=== PATIENT | male | born 1945 | race African-American/Black ===

== ENCOUNTER 2021-12-29 22:16 | Inpatient (IN) | payer BC, MEDICARE ==
[2021-12-29] MEDS ORDERED: Morphine 4 MG/ML VIAL ONE (22:57)
[2021-12-29 23:28] LABS: #Eosinphils 0.1 thou/uL (0.0-0.7); #Lymphocytes 1.3 thou/uL (1.20-3.40); #Neutrophils 11.7 thou/uL (1.40-6.50); %Basophils 0.2 % (0.0-1.0); %Eosinophils 0.5 % (0.0-10.0); %Lymphocytes 9.5 % (21.0-51.0); %Neutrophils 82.8 % (42.0-75.0); Hemoglobin 10.6 g/dL (14.0-18.0); Mean Corpuscular Hemoglobin 23.4 pg (27.0-31.0); Mean Corpuscular Volume 71.1 fL (78.0-98.0); Mean Platelet Volume 9.2 fL (7.4-10.4); Platelet Count 257 thou/uL (130-400); RBC Distribution Width 17.4 % (11.5-14.5); Red Blood Cell (RBC) Count 4.52 mill/uL (4.70-6.10); White Blood Cell (WBC) Count 14.2 thou/uL (4.8-10.8)
[2021-12-29 23:50] LABS: ALT (SGPT) 20 U/L (8-55); AST (SGOT) 23 U/L (5-34); Albumin 3.7 g/dL (3.4-4.8); Alkaline Phosphatase 91 U/L (40-110); Anion Gap 18 mmol/L (10-20); BUN (Urea Nitrogen) 28 mg/dL (8.4-25.7); Bilirubin, Total 0.6 mg/dL (0.2-1.2); Calc. Creatinine Clearance 0 mL/min (70-130); Carbon Dioxide 22 mmol/L (23-31); Chloride 99 mmol/L (98-107); Estimated GFR 52; Globulin 4.1 g/dL (2.4-3.5); Glucose 77 mg/dL (83-110); Potassium 3.7 mmol/L (3.5-5.1); Protein, Total 7.8 g/dL (5.8-8.1); Sodium 135 mmol/L (136-145)
[2021-12-29 23:50] LABS: Anisocytosis SLIGHT = 6-15 cells (100X) (0-5/hpf); Burr Cells SLIGHT = 2-5 cells (100X) (0-1/hpf); MDiff Complete? YES; Microcytosis SLIGHT = 6-15 cells (100X) (0-5/hpf); Platelet Morphology Comment Appears Adequate; Target Cells SLIGHT = 2-5 cells (100X) (0-1/hpf)
[2021-12-30 00:25] LABS: Bacteria/HPF None Seen HPF (None Seen); Bilirubin Negative (Negative); Blood, Urine Trace (Negative); Clarity Clear (Clear); Glucose, Urine (Dipstick) Greater than 1000 mg/dL (Negative); Ketone, Urine Negative (Negative); Leukocyte Negative Leu/uL (Negative); Nitrite Negative (Negative); Protein, Urine (Dipstick) 10 mg/dL (Neg-Trace); RBC/HPF None Seen HPF (0-3); Specific Gravity, Urine 1.014 (1.002-1.036); Squamous Epithelial None Seen HPF (0-3); Urobilinogen Normal mg/dL (Less than 2); pH, Urine 5.5 (5.0-9.0)
[2021-12-30] MEDS ORDERED: Piperacillin/Tazobactam 3.375 GM VIAL ONE ×2 (00:55→14:49)
[2021-12-30 01:09] LABS: Lipase 32 U/L (8-78); Magnesium 2.2 mg/dL (1.6-2.6)
[2021-12-30] MEDS ORDERED: Clindamycin/D5W 600 mg/50 ml Premix Bag ONE (02:35)
[2021-12-30] MEDS ORDERED: Morphine 4 MG/ML VIAL ONE (05:36)
[2021-12-30] MEDS ORDERED: Sodium Chloride 0.9% 1,000 ML IV SCH (06:00)
[2021-12-30] MEDS ORDERED: Ondansetron PF 4 MG/2 ML Vial IVP PRN ×2 (06:00→08:36)
[2021-12-30] MEDS ORDERED: Ondansetron ODT 4 MG TAB SL PRN (06:00)
[2021-12-30] MEDS ORDERED: Acetaminophen 325 MG TAB PO PRN ×2 (06:00→08:36)
[2021-12-30] MEDS ORDERED: Piperacillin/Tazobactam 3.375 GM in Sodium Chloride 0.9% 100 ML IVPB SCH ×2 (06:00→10:00)
[2021-12-30] MEDS ORDERED: Morphine 2 MG/ML VIAL SLOW IVP PRN (08:06)
[2021-12-30 08:23] LABS: SARS-CoV-2 NAA Rapid Test Not Detected (NotDetected)
[2021-12-30] MEDS ORDERED: Dextrose 5% in Water 1,000 ML IV PRN (08:36)
[2021-12-30] MEDS ORDERED: Dextrose 50% Abboject 50 ML SYRINGE SLOW IVP PRN (08:36)
[2021-12-30] MEDS: Ketorolac Tromethamine 30 MG/ML VIAL IVP PRN ×2 (08:39→20:45)
[2021-12-30] MEDS ORDERED: Clindamycin/D5W 600 MG in Premix Bag 1 BAG IVPB SCH (09:00)
[2021-12-30] MEDS ORDERED: Iopamidol-370 76% 500 ML 1 ML ONE (09:46)
[2021-12-30] MEDS: Famotidine 20 MG TAB PO SCH (09:57)
[2021-12-30] MEDS: Enoxaparin Sodium 40 MG/0.4 ML SYRINGE SC SCH (09:57)
[2021-12-30] MEDS: Senokot S 8.6-50 MG TAB PO SCH ×2 (09:58→21:12)
[2021-12-30] MEDS ORDERED: Vancomycin 1 GM in Premix Bag 1 BAG IVPB SCH ×2 (11:00→16:00)
[2021-12-30] MEDS: Metoprolol Tartrate 25 MG TAB PO SCH ×2 (11:56→21:12)
[2021-12-30] MEDS ORDERED: Midazolam HCl 2 mg/2 ml Vial ONE (14:37)
[2021-12-30] MEDS ORDERED: Fentanyl 100 MCG/2 ML VIAL ONE ×3 (14:38→19:11)
[2021-12-30] MEDS ORDERED: Sodium Chloride 0.9% 100 ML ONE (14:49)
[2021-12-30] MEDS ORDERED: fentaNYL Citrate/PF 100 MCG/2 ML SYRINGE ONE (16:14)
[2021-12-30] MEDS ORDERED: Promethazine HCl 25 MG/ML VIAL IVPB PRN (16:17)
[2021-12-30] MEDS ORDERED: Ondansetron HCl/PF 4 MG/2 ML Vial IVP PRN (16:17)
[2021-12-30] MEDS ORDERED: Promethazine HCl 25 MG/ML VIAL IM PRN (16:17)
[2021-12-30] MEDS ORDERED: Bupivacaine 0.25% 10 ML VIAL ONE (16:22)
[2021-12-30] MEDS ORDERED: PROPOFOL 200 MG/20 ML VIAL ONE (16:23)
[2021-12-30] MEDS ORDERED: Rocuronium Bromide 10 MG/ML (10ML VIAL) ONE (16:23)
[2021-12-30] MEDS ORDERED: Lidocaine 1% PF 5 ML VIAL ONE (16:23)
[2021-12-30] MEDS ORDERED: Ondansetron PF 4 MG/2 ML Vial ONE ×2 (16:23→18:59)
[2021-12-30] MEDS ORDERED: Neostigmine Methylsulfate 3 MG/3 ML SYRINGE ONE (16:23)
[2021-12-30] MEDS ORDERED: Glycopyrrolate 0.2 MG/ML 5 ML SYRINGE ONE (16:23)
[2021-12-30] MEDS: Piperacillin/Tazobactam 3.375 GM in Sodium Chloride 0.9% 100 ML IVPB SCH ×2 (17:13→21:12)
[2021-12-30] MEDS: Sodium Chloride 0.9% 1,000 ML IV SCH ×2 (17:13→19:48)
[2021-12-30 18:24] VITALS: BMI 25.4
[2021-12-30] MEDS ORDERED: Atorvastatin Calcium 40 MG TAB PO SCH (21:00)
[2021-12-30] MEDS: HYDROcodone/Acetaminophen 5/325 mg Tablet PO PRN (22:19)
[2021-12-31] MEDS: HumaLOG 300 UNITS/3 ML VIAL SC PRN ×3 (00:17→11:46)
[2021-12-31] MEDS: Ketorolac Tromethamine 30 MG/ML VIAL IVP PRN (02:43)
[2021-12-31] MEDS: HYDROcodone/Acetaminophen 5/325 mg Tablet PO PRN ×3 (02:49→14:24)
[2021-12-31] MEDS: Piperacillin/Tazobactam 3.375 GM in Sodium Chloride 0.9% 100 ML IVPB SCH ×2 (05:30→14:21)
[2021-12-31] MEDS ORDERED: Morphine 2 MG/ML VIAL SLOW IVP SCH ×2 (05:45→06:45)
[2021-12-31 05:57] LABS: #Eosinphils 0.1 thou/uL (0.0-0.7); #Monocytes 1.1 thou/uL (0.11-0.59); #Neutrophils 6.6 thou/uL (1.40-6.50); %Basophils 0.1 % (0.0-1.0); %Eosinophils 1.1 % (0.0-10.0); %Monocytes 11.2 % (0.0-10.0); %Neutrophils 67.7 % (42.0-75.0); Hemoglobin 9.3 g/dL (14.0-18.0); Mean Corpuscular HGB CONC 31.8 g/dL (32.0-36.0); Mean Corpuscular Hemoglobin 22.8 pg (27.0-31.0); Mean Corpuscular Volume 71.6 fL (78.0-98.0); Mean Platelet Volume 9.8 fL (7.4-10.4); Platelet Count 264 thou/uL (130-400); White Blood Cell (WBC) Count 9.8 thou/uL (4.8-10.8)
[2021-12-31 06:22] LABS: ALT (SGPT) 40 U/L (8-55); AST (SGOT) 51 U/L (5-34); Albumin 3.1 g/dL (3.4-4.8); Alkaline Phosphatase 114 U/L (40-110); Anion Gap 12 mmol/L (10-20); BUN (Urea Nitrogen) 18 mg/dL (8.4-25.7); Bilirubin, Total 0.6 mg/dL (0.2-1.2); Calc. Creatinine Clearance 69 mL/min (70-130); Calcium 9.3 mg/dL (7.8-10.44); Carbon Dioxide 21 mmol/L (23-31); Chloride 107 mmol/L (98-107); Estimated GFR 63; Globulin 3.5 g/dL (2.4-3.5); Glucose 177 mg/dL (83-110); Potassium 3.8 mmol/L (3.5-5.1); Protein, Total 6.6 g/dL (5.8-8.1); Sodium 136 mmol/L (136-145)
[2021-12-31] MEDS ORDERED: VANCOMYCIN 2 GRAM/500 ML BAG 2 GM in Premix Bag 1 BAG IVPB SCH (08:00)
[2021-12-31] MEDS: Senokot S 8.6-50 MG TAB PO SCH (08:58)
[2021-12-31] MEDS: Famotidine 20 MG TAB PO SCH (08:58)
[2021-12-31] MEDS: Metoprolol Tartrate 25 MG TAB PO SCH (08:59)
[2021-12-31] MEDS: Enoxaparin Sodium 40 MG/0.4 ML SYRINGE SC SCH (08:59)
[2021-12-31] MEDS: Sodium Chloride 0.9% 1,000 ML IV SCH (08:59)
[2021-12-31] MEDS ORDERED: diphenhydrAMINE 25 MG CAP PO PRN (09:19)
[2021-12-31] MEDS ORDERED: Gabapentin 300 MG CAP PO SCH (15:00)
[2021-12-31] MEDS ORDERED: metFORMIN 500 MG TAB PO SCH (17:00)
[2021-12-31 19:36] VITALS: BP 154/77; TEMP 97.9
[2021-12-31] MEDS ORDERED: Allopurinol 100 MG TAB PO SCH (21:00)
[2022-01-01] MEDS ORDERED: Lisinopril 10 MG TAB PO SCH (09:00)
== END 2021-12-31 20:00 | disposition home or self-care (01) | DRG 854 ==
LOC: ERS 22:16 → SURG A 12-30 04:15
PROVIDERS: ADMIT Student in an Organized Health Care Education/Training Program; ATTEND Student in an Organized Health Care Education/Training Program
PROC: 0VB90ZZ Excision of Right Testis, Open Approach (ICD-10-PCS; principal; 2021-12-30)
PROC: 0VBF0ZZ Excision of Right Spermatic Cord, Open Approach (ICD-10-PCS; 2021-12-30)
PROC: 0T9B80Z Drainage of Bladder with Drainage Device, Via Natural or Artificial Opening Endoscopic (ICD-10-PCS; 2021-12-30)
PROC: 3E03329 Introduction of Other Anti-infective into Peripheral Vein, Percutaneous Approach (ICD-10-PCS; 2021-12-30)
DX: A41.9 Sepsis, unspecified organism (principal); N17.9 Acute kidney failure, unspecified; N45.4 Abscess of epididymis or testis; Z20.822 Contact with and (suspected) exposure to COVID-19; E78.5 Hyperlipidemia, unspecified; I10 Essential (primary) hypertension; E11.9 Type 2 diabetes mellitus without complications; E11.40 Type 2 diabetes mellitus with diabetic neuropathy, unspecified; N40.0 Benign prostatic hyperplasia without lower urinary tract symptoms; N52.9 Male erectile dysfunction, unspecified; N45.3 Epididymo-orchitis; Z28.21 Immunization not carried out because of patient refusal; Z98.890 Other specified postprocedural states; Z80.42 Family history of malignant neoplasm of prostate; Z79.899 Other long term (current) drug therapy; Z87.891 Personal history of nicotine dependence; Z79.84 Long term (current) use of oral hypoglycemic drugs
CPT/HCPCS: 36415; 36416; 74177; 76870; 80053; 81003; 81015; 83605; 83690; 83735; 85025; 87040; 87070; 87086; 87205; 88305; 93005; 93010; 93976; 96361; 96365; 96367; 96375; 96376; C1769; J1650; J1815; J1885; J2250; J2270; J2405; J2543; J2704; J3010; J3370; J3490; J7050; Q9967; S0020; U0002